=== PATIENT | female | born 1995 | race Caucasian/White ===

== ENCOUNTER 2017-11-22 03:26 | Emergency (ER) | payer SELFPAY ==
[~2017-11-22] VITALS: Ht 154.9 cm; Wt 77.3 kg
[2017-11-22 03:31] VITALS: TEMP 96.9
[2017-11-22 04:08] LABS: COLLECTION METHOD CLEAN CATCH
[2017-11-22 04:10] LABS: BASO # 0.1 (0.0-0.2); BASO % 0.5 % (0.0-2.0); EOS # 0.2 (0.0-0.7); EOS % 1.1 % (0-4.0); GRAN # 11.8 (1.4-6.5); HEMATOCRIT 39.8 % (37.0-47.0); HEMOGLOBIN 13.8 g/dl (12.5-16.0); LYMPH # 3.7 (1.2-3.4); LYMPH % 22.3 % (20.0-51.0); MEAN CELL VOLUME 83 fl (80.0-100.0); MEAN CORPUSCULAR HEMOGLOBIN 29 pg (27.0-31.0); MEAN CORPUSCULAR HGB CONC 35 g/dl (33.0-37.0); MEAN PLATELET VOLUME 10.7 fl (7.4-10.4); MONO # 0.8 (0.1-0.6); MONO % 4.7 % (1.7-9.3); PLATELET COUNT 228 K/mm3 (130-400); RED BLOOD COUNT 4.77 M/mm3 (4.10-5.30); REDCELL DISTRIBUTION WIDTH-CV 12.4 % (11.5-14.5)
[2017-11-22 04:17] LABS: MUCOUS Present /lpf; PH 5 (5-8); URINE APPEARANCE Cloudy; URINE BACTERIA Rare /hpf; URINE BILIRUBIN Negative (NEGATIVE); URINE BLOOD Negative (NEGATIVE); URINE COLOR Yellow; URINE GLUCOSE Negative (NEGATIVE); URINE KETONE Negative (NEGATIVE); URINE LEUKOCYTE ESTERASE 1+ (NEGATIVE); URINE NITRATE Negative (NEGATIVE); URINE PROTEIN(semi-quant) 1+ (NEGATIVE)
[2017-11-22 04:23] LABS: BILIRUBIN,TOTAL 0.2 mg/dL (0.0-1.0); C-REACTIVE PROTEIN 0.7 mg/dL (0.0-0.9); CALCIUM 9.2 mg/dL (8.4-10.2); CREATININE, serum 0.61 mg/dL (0.52-1.25); POTASSIUM 3.7 mmol/L (3.4-5.0); TOTAL PROTEIN 7.5 gm/dL (6.4-8.2)
[2017-11-22] MEDS ORDERED: OMNICEF 300MG300 MG PO (06:07)
[2017-11-22] MEDS ORDERED: NORCO 325 MG-51 TAB PO (06:07)
[2017-11-22 06:53] VITALS: BP 110/76; PULSE 58
== END 2017-11-22 06:55 | disposition home or self-care (01) ==
LOC: COL.ER 03:26
PROVIDERS: Emergency Medicine
DX: N39.0 Urinary tract infection, site not specified (principal)
CPT/HCPCS: J0696; J1170; J1885; J7030; Q9967